=== PATIENT | male | born 1980 | race Caucasian/White ===

== ENCOUNTER 2023-04-18 14:03 | Outpatient (CLI) | payer OTHER ==
[2023-04-18 15:12] LABS: BILIRUBIN TOTAL 0.62 mg/dL (0.3-1.2); BILIRUBIN,CONJUGATED 0.18 mg/dL (0.0-0.2); BILIRUBIN,UNCONJUGATED 0.44 mg/dL (0.0-0.6)
== END 2023-04-18 14:50 | disposition home or self-care (01) ==
LOC: LAB 14:03
PROVIDERS: ATTEND Internal Medicine Geriatric Medicine
DX: B19.20 Unspecified viral hepatitis C without hepatic coma (principal)